=== PATIENT | male | born 1980 | race Native Hawaiian/Other Pacific Islander ===

== ENCOUNTER 2019-11-13 11:19 | Emergency (ER) | payer BC ==
[~2019-11-13] VITALS: Ht 190.5 cm; Wt 111.1 kg
[2019-11-13 11:37] VITALS: TEMP 99.1
[2019-11-13 12:30] LABS: POTASSIUM 4.1 mmol/L (3.6-5.2)
[2019-11-13 12:33] LABS: PLATELET COUNT 202 K/uL (142-355)
[2019-11-13 12:53] LABS: PARTIAL THROMBOPLASTIN TIME 26.5 SECONDS (24.5-33.6)
[2019-11-13 14:35] VITALS: BP 137/92
== END 2019-11-13 14:43 | disposition home or self-care (01) ==
LOC: ED 11:19
PROVIDERS: Family Medicine
DX: S70.11XA Contusion of right thigh, initial encounter (principal); W22.03XA Walked into furniture, initial encounter; Y92.89 Other specified places as the place of occurrence of the external cause
CPT/HCPCS: 80053; 85027; 85379; 85610; 85730; 99283